=== PATIENT | female | born 1965 | race African-American/Black ===

== ENCOUNTER 2016-07-16 18:27 | Emergency (ER) | payer MEDICAID ==
[~2016-07-16] VITALS: Ht 170.2 cm; Wt 73.0 kg
[2016-07-16] MEDS ORDERED: IBUPROFEN 600MG TABLET PO ONE (20:00)
[2016-07-16] MEDS ORDERED: HYDROCODONE/ACETAMINOPHEN 5/325MG TABLET PO ONE (21:15)
[2016-07-16 21:18] VITALS: BP 115/66
== END 2016-07-16 21:30 | disposition home or self-care (01) ==
LOC: ER 20:51
DX: R51 Headache (principal); I25.10 Atherosclerotic heart disease of native coronary artery without angina pectoris; I25.2 Old myocardial infarction
CPT/HCPCS: 70450; 99284

== ENCOUNTER 2017-06-22 08:25 | Emergency (ER) | payer MEDICAID ==
[~2017-06-22] VITALS: Ht 165.1 cm; Wt 63.0 kg
[2017-06-22] MEDS ORDERED: IBUPROFEN 800MG TABLET PO ONE (09:00)
[2017-06-22 09:07] VITALS: BP 156/71
== END 2017-06-22 09:52 | disposition home or self-care (01) ==
LOC: ER 08:54
DX: S46.912A Strain of unspecified muscle, fascia and tendon at shoulder and upper arm level, left arm, initial encounter (principal); S39.012A Strain of muscle, fascia and tendon of lower back, initial encounter; I10 Essential (primary) hypertension; E78.00 Pure hypercholesterolemia, unspecified; I25.2 Old myocardial infarction; V43.52XA Car driver injured in collision with other type car in traffic accident, initial encounter; Y93.89 Activity, other specified; Y92.89 Other specified places as the place of occurrence of the external cause; Y99.8 Other external cause status
CPT/HCPCS: 99283; Z7610

== ENCOUNTER 2017-07-05 14:53 | Emergency (ER) | payer MEDICAID ==
[~2017-07-05] VITALS: Ht 165.1 cm; Wt 66.0 kg
[2017-07-05] MEDS ORDERED: KETOROLAC 60MG/2ML VIAL IM ONE (19:30)
[2017-07-05 19:53] VITALS: BP 120/48
== END 2017-07-05 19:53 | disposition home or self-care (01) ==
LOC: ER 14:53
DX: M79.662 Pain in left lower leg (principal); I10 Essential (primary) hypertension; E78.00 Pure hypercholesterolemia, unspecified; F17.200 Nicotine dependence, unspecified, uncomplicated
CPT/HCPCS: 93971; 96372; 99284; J1885; Z7610